=== PATIENT | female | born 1950 | race Caucasian/White ===

== ENCOUNTER → 2017-03-02 | Outpatient (CLI) | payer MEDICARE, OTHER ==
--- NOTE | 2017-03-04 14:01 | WOMENS IMAGING REPORT ---
EXAM DESCRIPTION: BONE DENSITY HIP/SPINE COMPLETED DATE/TIME: 03/02/2017 4:34 pm REASON FOR STUDY: AGE-RELATED OSTEOPROSIS; M81.0 M81.0 AGE-RELATED OSTEOPOROSIS W/O CURRENT PATHOLO GICAL FRAC Z12.31 ENCNTR SCREEN MAMMOGRAM FOR MALIGNANT NEOPLASM OF [place] COMPARISON: 2011, 2013 TECHNIQUE: Dual-Energy X-ray Absorptiometry (DEXA) of the AP Spine and Hip. LIMITATIONS: None. FINDINGS: LUMBAR SPINE: The bone mineral density (BMD) measured from L1-L4 in the AP projection correlates with a T-score of -2.3, which is osteopenic as defined by the World Health Organization. This is not statistically sig nificantly different from baseline assessment in 2011 HIP: The bone mineral density (BMD) measured in the left femoral neck at the hip correlates with a T-score of -2.3, which is osteopenic as defined by the World Health Organization. This represents a 10 to 1 1% decline in bone density compared to both prior studies IMPRESSION: 1. LUMBAR SPINE: Osteopenic 2. HIP: Osteopenic COMMENT: The World Health Organization defines low BMD as follows: T-score: Normal: Greater than -1.0 Osteopenia: Between -1.0 and -2.5 Osteoporosis: Less than -2.5 without fractures Established osteoporosis: Less than -2.5 with fractures In general, you may wish to consider: Diagnosis Treatment Follow-up DEXA Normal BMD Prevention 2-3 years Osteopenia Prevention/Therapy 1-2 years Osteoporosis Therapy Yearly TECHNICAL DOCUMENTATION: JOB ID: [id number] [email or web address]- All Rights Reserved
--- NOTE | 2017-03-09 20:00 | WOMENS IMAGING REPORT ---
EXAM DESCRIPTION: 3D SCREENING MAMMO BILAT COMPLETED DATE/TIME: 03/02/2017 4:34 pm REASON FOR STUDY: ROUTINE SCREENING; Z12.31 M81.0 AGE-RELATED OSTEOPOROSIS W/O CURRENT PATHOLOGICAL FRAC Z12.31 ENCNTR SCREEN MAMMOGRAM FOR MALIGNANT NEOPLASM OF [place] COMPARISON: Multiple since 2006 TECHNIQUE: Standard craniocaudal and mediolateral oblique views of each breast recorded using digita l acquisition and breast tomosynthesis. LIMITATIONS: None. FINDINGS: Findings present which are benign by mammographic criteria. No suspicious masses, calcifi cations or architectural distortion. Pertinent benign findings: Several right breast calcification, stable asymmetrically dense left retro areolar tissue Read with the assistance of CAD. .[facility] - R2 Cenova Version 1.3 .[facility] - R2 Cenova Version 1.3 .[facility] - R2 Cenova Version 2.4 .[facility] [place] - R2 Cenova Version 2.4 .[facility] - R2 Applied Researcher Version 9.2 Benign mammographic findings may include one or more of the following: Smooth masses, popcorn/rim/co arse calcifications, asymmetries, post-procedure changes, and lesions with long-standing stability. IMPRESSION: BENIGN MAMMOGRAPHIC FINDINGS. BIRADS 2 BREAST DENSITY: c. The breasts are heterogeneously dense, which may obscure small masses. BIRAD: 2 BENIGN FINDING(S) RECOMMENDATION: RECOMMENDATION: ROUTINE SCREENING Please continue yearly bilateral screening tomosynthesis in February 2018 COMMENT: The patient has been notified of the results by letter per MQSA requirements. Additional no tification policies are in place for contacting patient with suspicious or incomplete findings. Quality ID #[id number]: The [employer] recommends an annual screening mammogram for women aged 40 years or over. This facility utilizes a reminder system to ensure that all patients receive reminder letters, and/or direct phone calls for appointments. This includes reminders for routine scr eening mammograms, diagnostic mammograms, or other Breast Imaging Interventions when appropriate. Th is patient will be placed in the appropriate reminder system. The [employer] (ACR) has developed recommendations for screening MRI of the breast s in certain patient populations, to be used in conjunction with mammography. Breast MRI surveillanc e may be appropriate for women with more than 20% lifetime risk of developing breast cancer as deter mined by genetic testing, significant family history of the disease, or history of mantle radiation f or Hodgkins Disease. ACR Practice Guidelines 2008. DBT Technology DBT is a type of tomographic mammography. With conventional mammography, overlapping breast tissue ma y make lesions difficult to detect, even with good compression. DBT uses an x-ray tube that rotates a round the breast, taking images at different angles. These images are then combined to create thin sl ices of the breast that the radiologist can view as a 3D reconstruction. The Hologic unit can perform full-field digital mammograms (2D imaging); or DBT (3D imaging); or both, in a combination mode that quickly performs both the mammogram and the tomosynthesis scan while the breast is still compressed. RS 6045F: Fluoroscopic imaging is not utilized for breast tomosynthesis. TECHNICAL DOCUMENTATION: FINDING NUMBER: (1) ASSESSMENT: (1) JOB ID: [id number] [employer]- All Rights Reserved
== END ==
LOC: WI 13:59
PROVIDERS: ATTEND Internal Medicine
DX: Z12.31 Encounter for screening mammogram for malignant neoplasm of breast (principal); M81.0 Age-related osteoporosis without current pathological fracture
CPT/HCPCS: 77063; 77080; G0202; 77067

== ENCOUNTER → 2019-06-05 | Outpatient (CLI) | payer MEDICARE, OTHER ==
--- NOTE | 2019-06-05 12:19 | WOMENS IMAGING REPORT ---
EXAM DESCRIPTION: 3D SCREENING MAMMO BILAT COMPLETED DATE/TIME: 06/05/2019 9:43 am REASON FOR STUDY: Z12.31 ENCOUNTER FOR SCREENING MAMMOGRAM FOR MALIGNANT NEOPLASM OF BREAST Z12.31 ENCNTR SCREEN MAMMOGRAM FOR MALIGNANT NEOPLASM OF [place] M81.0 AGE-RELATED OSTEOPOROSIS W/O CURRENT PAT HOLOGICAL FRAC COMPARISON: Multiple since 2006 EXAM PARAMETERS: Views: Standard craniocaudal and mediolateral oblique views of each breast recorded using digital acquisition and breast tomosynthesis. Read with the assistance of CAD. .[facility] - [employer] Simulation Technician Version 9.2 LIMITATIONS: None. FINDINGS: No suspicious masses, suspicious calcifications or architectural distortion. No areas of c oncern. IMPRESSION: NEGATIVE MAMMOGRAM. BIRADS 1. BREAST DENSITY: b. There are scattered areas of fibroglandular density. BIRAD: ASSESSMENT: 1 NEGATIVE RECOMMENDATION: ROUTINE SCREENING Please continue yearly bilateral screening mammography/tomosynthesis in May 2020 COMMENT: The patient has been notified of the results by letter per [place] requirements. Additional no tification policies are in place for contacting patient with suspicious or incomplete findings. Quality ID #[id number]: The [employer] recommends an annual screening mammogram for women aged 40 years or over. This facility utilizes a reminder system to ensure that all patients receive reminder letters, and/or direct phone calls for appointments. This includes reminders for routine scr eening mammograms, diagnostic mammograms, or other Breast Imaging Interventions when appropriate. Th is patient will be placed in the appropriate reminder system. TECHNICAL DOCUMENTATION: FINDING NUMBER: (1) ASSESSMENT: (1) JOB ID: [id number] [employer]- All Rights Reserved Reading location - IP/workstation name: [email or web address]
--- NOTE | 2019-06-05 13:33 | WOMENS IMAGING REPORT ---
EXAM DESCRIPTION: BONE DENSITY HIP/SPINE COMPLETED DATE/TIME: 06/05/2019 9:43 am REASON FOR STUDY: M81.0 AGE-RELATED OSTEOPOROSIS WITHOUT CURRENT PATHOLOGICAL FRACTURE Z12.31 ENCNT R SCREEN MAMMOGRAM FOR MALIGNANT NEOPLASM OF [place] M81.0 AGE-RELATED OSTEOPOROSIS W/O CURRENT PATHOLOG ICAL FRAC COMPARISON: 2011, 2013, 2016 TECHNIQUE: Dual-Energy X-ray Absorptiometry (DEXA) of the AP Spine and Hip. LIMITATIONS: None. FINDINGS: LUMBAR SPINE: The bone mineral density (BMD) measured from L1-L4 in the AP projection correlates with a T-score of -2.1, which is osteopenic as defined by the World Health Organization. BMD Change vs Baseline: Not statistically significant HIP: The bone mineral density (BMD) measured in the left femoral neck at the hip correlates with a T-score of -1.8, which is osteopenic as defined by the World Health Organization. BMD Change vs Baseline: Not statistically significant 10 year Fracture Risk Assessment: Major Osteoporotic Fracture: 11% Hip Fracture: 1.6% IMPRESSION: 1. LUMBAR SPINE WHO CLASSIFICATION: Osteopenic 2. HIP WHO CLASSIFICATION: Osteopenic OVERALL ASSESSMENT: WHO CLASSIFICATION: Osteopenic COMMENT: The World Health Organization defines low BMD as follows: T-score: Normal: Greater than -1.0 Osteopenia: Between -1.0 and -2.5 Osteoporosis: Less than -2.5 without fractures Established osteoporosis: Less than -2.5 with fractures In general, you may wish to consider: Diagnosis Treatment Follow-up DEXA Normal BMD Prevention 2-3 years Osteopenia Prevention/Therapy 1-2 years Osteoporosis Therapy Yearly TECHNICAL DOCUMENTATION: JOB ID: [id number]- All Rights Reserved Reading location - IP/workstation name: [email or web address]
== END ==
LOC: WI 09:00
PROVIDERS: ATTEND Internal Medicine
DX: Z12.31 Encounter for screening mammogram for malignant neoplasm of breast (principal); M81.0 Age-related osteoporosis without current pathological fracture
CPT/HCPCS: 77063; 77067; 77080

== ENCOUNTER 2020-02-07 08:27 | Day surgery (SDC) | payer MEDICARE, OTHER ==
[2020-02-04 10:07] LABS: HEMATOCRIT 40.7 % (36.0-47.0); HEMOGLOBIN 13.7 g/dL (12.0-15.5); MEAN CORPUSCULAR HEMOGLOBIN 29.4 pg (27.0-33.4); MEAN CORPUSCULAR HGB CONC 33.7 g/dL (32.0-36.0); MEAN CORPUSCULAR VOLUME 87 fl (80-97); PLATELET COUNT 253 10^3/uL (150-450); RED BLOOD COUNT 4.66 10^6/uL (3.72-5.28); RED CELL DISTRIBUTION WIDTH 13.5 % (11.5-14.0); WHITE BLOOD COUNT 4.1 10^3/uL (4.0-10.5)
[2020-02-04 10:18] LABS: APPEARANCE,URINE CLOUDY; BILIRUBIN,URINE NEGATIVE (NEGATIVE); COLOR,URINE YELLOW; GLUCOSE, URINE NEGATIVE (NEGATIVE); KETONES,URINE NEGATIVE (NEGATIVE); LEUKOCYTE ESTERASE,URINE LARGE (NEGATIVE); NITRITE,URINE NEGATIVE (NEGATIVE); PROTEIN,URINE 100 mg/dL (NEGATIVE); URINE SPECIFIC GRAVITY 1.015; UROBILINOGEN,URINE NEGATIVE mg/dL (<2.0)
--- NOTE | 2020-02-04 10:20 | RADIOLOGY REPORT (SQ) ---
EXAM DESCRIPTION: CHEST PA/LATERAL IMAGES COMPLETED DATE/TIME: 02/04/2020 10:11 am REASON FOR STUDY: PREOP COMPARISON: None. EXAM PARAMETERS: NUMBER OF VIEWS: two views TECHNIQUE: Digital Frontal and Lateral radiographic views of the chest acquired. RADIATION DOSE: NA LIMITATIONS: none FINDINGS: LUNGS AND PLEURA: No opacities, masses or pneumothorax. No pleural effusion. MEDIASTINUM AND HILAR STRUCTURES: No masses or contour abnormalities. HEART AND VASCULAR STRUCTURES: Heart normal size. No evidence for failure. BONES: No acute findings. HARDWARE: None in the chest. OTHER: No other significant finding. IMPRESSION: NO SIGNIFICANT RADIOGRAPHIC FINDING IN THE CHEST. TECHNICAL DOCUMENTATION: JOB ID: [id number] 2010 [employer]- All Rights Reserved Reading location - IP/workstation name: [email or web address]
[2020-02-04 10:38] LABS: ALBUMIN 4.3 g/dL (3.5-5.0); ALKALINE PHOSPHATASE 134 U/L (38-126); ANION GAP 5 (5-19); ASPARTATE AMINO TRANSFERASE 22 U/L (14-36); BILIRUBIN,TOTAL 0.4 mg/dL (0.2-1.3); BLOOD UREA NITROGEN 19 mg/dL (7-20); CARBON DIOXIDE 31 mmol/L (22-30); CHLORIDE 105 mmol/L (98-107); GLUCOSE 105 mg/dL (75-110); POTASSIUM 4.9 mmol/L (3.6-5.0); TOTAL PROTEIN 7.4 g/dL (6.3-8.2)
--- NOTE | 2020-02-04 21:15 | EKG REPORT ---
SEVERITY:- NORMAL ECG - SINUS RHYTHM : Confirmed by: Trey Mccurdy MD 04-Feb-2020 21:14:12
[~2020-02-07 08:27] MED LIST: CEFAZOLIN 2 GM/D5W RTU 2 GM/50 ML RTUPB IV ONE; CEFAZOLIN 2 GM/D5W RTU 2 GM/50 ML RTUPB IV PRN; CEFAZOLIN SODIUM 2 GM in DEXTROSE 5%-WATER 100 ML IV PRN; LACTATED RINGERS 1000 ML IV PRN; LIDOCAINE 0.5% INJ-PF (5 MG/ML) 50 ML SDV SUBCUT PRN
[2020-02-07] MEDS ORDERED: SUCCINYLCHOLINE CHLORIDE INJ 200 MG/10 ML VIAL ONE (08:37)
[2020-02-07] MEDS ORDERED: VECURONIUM BROMIDE INJ 10 MG VIAL IV ONE (08:37)
[2020-02-07] MEDS ORDERED: ACETAMINOPHEN 325 MG TABLET ONE (09:08)
[2020-02-07] MEDS ORDERED: EPHEDRINE SULFATE INJ 50 MG/1 ML AMPULE ONE (09:48)
[2020-02-07] MEDS ORDERED: MIDAZOLAM 2 MG/2 ML INJ ONE (09:48)
[2020-02-07] MEDS ORDERED: KETOROLAC TROMETHAMINE 60 MG/2 ML SDV ONE (09:48)
[2020-02-07] MEDS ORDERED: ONDANSETRON HCL INJ/PF 4 MG/2 ML SDV ONE (09:48)
[2020-02-07] MEDS ORDERED: FENTANYL CITRATE INJ/PF 100 MCG/2 ML AMPUL ONE (09:48)
[2020-02-07] MEDS ORDERED: PROPOFOL INJ 200 MG/20 ML VIAL IV ONE (09:48)
[2020-02-07] MEDS ORDERED: ACETAMINOPHEN 325 MG TABLET PO ONE (10:00)
[2020-02-07] MEDS ORDERED: LIDOCAINE 0.5%/EPINEPHRINE INJ 50 ML VIAL ONE (10:50)
[2020-02-07] MEDS ORDERED: HYDROMORPHONE HCL INJ/PF 2 MG/ML AMPULE ONE (11:01)
[2020-02-07] MEDS ORDERED: MORPHINE SULFATE 10 MG/ML INJ IV PRN (11:15)
[2020-02-07] MEDS ORDERED: FENTANYL CITRATE INJ/PF 100 MCG/2 ML AMPUL IV PRN ×3 (11:15)
[2020-02-07] MEDS ORDERED: MEPERIDINE HCL/PF INJ 25 MG/1 ML DISP.SYRIN IV PRN (11:15)
[2020-02-07] MEDS ORDERED: ONDANSETRON HCL INJ/PF 4 MG/2 ML SDV IV PRN (11:15)
[2020-02-07] MEDS ORDERED: PROMETHAZINE HCL INJ 25 MG/1 ML VIAL IV PRN ×3 (11:15→12:55)
[2020-02-07] MEDS ORDERED: DIPHENHYDRAMINE HCL 50 MG/ML VIAL IV PRN (11:15)
[2020-02-07] MEDS ORDERED: OXYCODONE-ACETAMINOPHEN 5-325 MG TABLET PO PRN ×4 (11:15→12:55)
[2020-02-07] MEDS ORDERED: SIMETHICONE 80 MG TAB.CHEW PO PRN (12:55)
[2020-02-07] MEDS ORDERED: HYDROMORPHONE HCL INJ/PF 2 MG/ML AMPULE IV PRN (12:55)
[2020-02-07] MEDS ORDERED: OXYTOCIN/0.9 % SODIUM CHLORIDE 30 UNIT/500 ML RTUINJ IV PRN (12:55)
[2020-02-07] MEDS ORDERED: ACETAMINOPHEN 1,000 MG/100 ML RTUPB IV PRN (12:55)
[2020-02-07 15:12] LABS: ABSOLUTE LYMPHOCYTES (AUTO) 0.6 10^3/uL (0.5-4.7); ABSOLUTE MONOCYTES (AUTO) 0.5 10^3/uL (0.1-1.4); ABSOLUTE NEUT (AUTO) 7.3 10^3/uL (1.7-8.2); BASOPHILS % (AUTO) 0.2 % (0-2); EOSINOPHILS % (AUTO) 0.2 % (0-6); HEMATOCRIT 35.7 % (36.0-47.0); HEMOGLOBIN 12.1 g/dL (12.0-15.5); LYMPHOCYTES % (AUTO) 6.9 % (13-45); MEAN CORPUSCULAR HEMOGLOBIN 29.3 pg (27.0-33.4); MEAN CORPUSCULAR HGB CONC 33.7 g/dL (32.0-36.0); MEAN CORPUSCULAR VOLUME 87 fl (80-97); MONOCYTES % (AUTO) 5.4 % (3-13); PLATELET COUNT 213 10^3/uL (150-450); RED BLOOD COUNT 4.11 10^6/uL (3.72-5.28); RED CELL DISTRIBUTION WIDTH 13.6 % (11.5-14.0); SEGMENTED NEUTROPHILS % (AUTO) 87.3 % (42-78); TOTAL CELLS COUNTED % (AUTO) 100 %; WHITE BLOOD COUNT 8.4 10^3/uL (4.0-10.5)
[2020-02-07 15:32] LABS: BLOOD UREA NITROGEN 17 mg/dL (7-20); CALCIUM 8.9 mg/dL (8.4-10.2); CHLORIDE 107 mmol/L (98-107); GLUCOSE 140 mg/dL (75-110); POTASSIUM 3.8 mmol/L (3.6-5.0)
[2020-02-07 15:38] LABS: ANION GAP 5 (5-19); CARBON DIOXIDE 27 mmol/L (22-30)
--- NOTE | 2020-02-07 17:15 | Operative Report ---
Operative Report DATE OF SURGERY: 02/07/20 PREOPERATIVE DIAGNOSIS: Uterine prolapse with cystocele and gaping perineum. S he also desires removal of the ovaries and fallopian tubes. POSTOPERATIVE DIAGNOSIS: Same OPERATION: Laparoscopic-assisted vaginal hysterectomy with bilateral salpingo- oophorectomy, anterior repair and perineorrhaphy SURGEON: JASON LARA 1ST LOG HANDLING EQUIPMENT OPERATOR: VINNY BLACKWELL ANESTHESIA: GA TISSUE REMOVED OR ALTERED: Uterus tubes ovaries cervix COMPLICATIONS: None ESTIMATED BLOOD LOSS: 125 cc INTRAOPERATIVE FINDINGS: Fibroid present on the uterus normal appearing menopausal ovaries and fallopian tubes. Cystocele noted and gaping introitus. PROCEDURE: The patient was taken the OR placed in supine position. Anesthesia was induced. She is placed in the dorsolithotomy position using Dixon stirrups. Her abdomen perineum and vagina were prepared and draped in a sterile fashion. A Calero catheter was placed for drainage of the bladder. A weighted speculum was placed in the vagina and the cervix was grasped with a tenaculum. Sound was to 7 cm. The cervix was gently dilated allowing a V care uterine manipulator to be placed. Incision was made the umbilicus. The fascia was grasped with Allis clamps and elevated and incised with curved Hammer scissors. A blunt port was placed. Laparoscopy confirmed appropriate placement. The abdomen was then insufflated with CO2 gas. View of the pelvis was good. A left lateral port was placed under laparoscopic visualization and a right lateral port also placed under laparoscopic visualization as well as a suprapubic port. These were all 5 mm ports. First the left ovary was elevated out of the pelvis and adhesions were taken down freeing the ovary. The ovary was moved away from the pelvic sidewall and the infundibulopelvic pedicle was cauterized and cut with the LigaSure device. The ureter was well away from the site. Likewise the round ligament was cauterized and cut with the LigaSure device. The same procedure was carried out on the right ovary and round ligament. Staying directly next to the uterus the broad ligament was cauterized and cut with the LigaSure device bilaterally. The anterior leaf of the broad ligament was incised and the bladder was taken off the cervix using sharp and blunt dissection. The uterine arteries were cauterized and cut with the LigaSure device bilaterally. The cardinal ligaments also were cauterized directly next to the cervix and cut using the LigaSure device. Upon reaching the vaginal cuff the V care ring could be palpated. The circumferential incision was then made using a monopolar hook excising the cervix free from the vaginal cuff and the uterus tubes and ovaries were removed through the vagina. The surgical pedicles were inspected and found to be hemostatic. The instruments were removed from the abdomen but the ports were left in place at this point. Next the vaginal portion of the procedure was done. Angle sutures were placed bilaterally incorporating anterior vaginal mucosa and posterior vaginal mucosa and ligated. This helped with bleeding from the vaginal cuff. The midline of the anterior vaginal cuff was grasped with Allis clamps. The vaginal mucosa was then infiltrated with a dilute solution of lidocaine. An incision over the vaginal mucosa was then made overlying the cystocele. The edges of the vaginal mucosa were grasped with Allis clamps and the vaginal mucosa was dissected off the bladder using sharp and blunt dissection. Next interrupted sutures of 2-0 Vicryl were used to bring the lateral vaginal tissue medially over the cystocele. This this was done with 5 interrupted sutures and afterwards no cystocele was present. The edges of the vaginal incision were trimmed and the vaginal mucosa was closed with interrupted sutures of 2-0 Vicryl suture. At this point the cystocele was no longer present. The remainder of the vaginal cuff was closed with interrupted sutures of 2-0 Vicryl incorporating anterior vaginal mucosa to posterior vaginal mucosa. The vagina was then irrigated and hemostasis was good at this point. Next a triangular portion of perineum was removed with the scalpel. The peritoneum was then closed with interrupted sutures of 2-0 Vicryl greatly reducing the caliber of the vaginal opening. I returned to the laparoscopy portion of the case and reinspected the surgical pedicles. Good hemostasis was noted. The pelvis was irrigated and suctioned free of fluid. At this point the ports were removed under laparoscopic visualization the umbilical port and scope were removed at the same time. The fascia at the umbilicus was closed with a 2-0 Vicryl stitch and skin closed with a 4-0 undyed Vicryl stitch. Patient was placed back in supine position extubated in the OR and taken recovery room stable condition.
[2020-02-07] MEDS ORDERED: ACETAMINOPHEN 325 MG TABLET PO PRN (18:00)
[2020-02-07] MEDS: DOCUSATE SODIUM 100 MG CAPSULE PO SCH (18:31)
[2020-02-07] MEDS: KETOROLAC TROMETHAMINE INJ/PF 30 MG/1 ML SDV IV SCH (18:31)
[2020-02-07] MEDS: RINGERS SOLUTION,LACTATED 1,000 ML IV PRN (20:53)
[2020-02-07] MEDS ORDERED: (PENDING PHARMACY ID) (Citalopram Hydrobromide [Citalopram Hbr] 40 MG) PO SCH (22:00)
[2020-02-07] MEDS ORDERED: (PENDING PHARMACY ID) (Rosuvastatin Calcium [Rosuvastatin Calcium] 10 MG) PO SCH (22:00)
[2020-02-07] MEDS ORDERED: CITALOPRAM HYDROBROMIDE 20 MG TABLET PO SCH (22:30)
[2020-02-07] MEDS ORDERED: TRAZODONE HCL 50 MG TABLET PO SCH (22:30)
[2020-02-07] MEDS ORDERED: ATORVASTATIN CALCIUM 20 MG TABLET PO SCH ×2 (22:30)
[2020-02-08] MEDS: KETOROLAC TROMETHAMINE INJ/PF 30 MG/1 ML SDV IV SCH (01:27)
[2020-02-08] MEDS: RINGERS SOLUTION,LACTATED 1,000 ML IV PRN (04:48)
[2020-02-08 08:00] VITALS: BP 118/60
[2020-02-08 08:27] LABS: HEMOGLOBIN 10.7 g/dL (12.0-15.5); MEAN CORPUSCULAR HGB CONC 33.5 g/dL (32.0-36.0); MEAN CORPUSCULAR VOLUME 87 fl (80-97); PLATELET COUNT 206 10^3/uL (150-450); RED BLOOD COUNT 3.69 10^6/uL (3.72-5.28); RED CELL DISTRIBUTION WIDTH 13.7 % (11.5-14.0); WHITE BLOOD COUNT 5.3 10^3/uL (4.0-10.5)
[2020-02-08] MEDS: DOCUSATE SODIUM 100 MG CAPSULE PO SCH (09:13)
--- NOTE | 2020-02-08 09:44 | PDOC DISCHARGE SUMMARY ---
Impression - Admit/DC Date/PCP Admission Date/Primary Care Provider: KENDRA TOURE MD Discharge Date: 02/08/20 - Discharge Diagnosis (1) Pelvic prolapse Is this a current diagnosis for this admission?: Yes (2) Pelvic organ prolapse quantification stage 3 cystocele Is this a current diagnosis for this admission?: Yes - Assessment Summary: She was admitted and underwent a LAVH with bso, anterior repair and perineorraphy. Please see the operative report. The night of surgery she did well. The next morning the garcia is out and she reports no pain. She would like to go home this am. Continue home meds and planned followup next week. Limit activity and no driving. - Additional Information Resuscitation Status: Full Code Discharge Diet: Regular Discharge Activity: Balance Activity w/Rest, Pelvic Rest Referrals: KENDRA TOURE MD [Primary Care Provider] - Prescriptions: Oxycodone HCl/Acetaminophen [Percocet 5-325 mg Tablet] 1 tab PO Q4HP PRN #30 tablet PRN Reason: Ibuprofen [Motrin 800 mg Tablet] 800 mg PO Q8H #30 tablet Home Medications: Citalopram Hydrobromide [Citalopram HBr] 40 mg PO QHS 02/04/20 Rosuvastatin Calcium 10 mg PO QHS 02/04/20 Trazodone HCl 100 mg PO QHS 02/07/20 Ibuprofen [Motrin 800 mg Tablet] 800 mg PO Q8H #30 tablet 02/08/20 Oxycodone HCl/Acetaminophen [Percocet 5-325 mg Tablet] 1 tab PO Q4HP PRN #30 tablet 02/08/20 History of Present Illiness History of Present Illness: CARLEE SAEZ is a 69 year old female Physical Exam - Physical Exam Vital Signs: Temp Pulse Resp BP Pulse Ox 97.8 F 67 18 118/60 100 02/08/20 07:13 02/08/20 07:13 02/08/20 07:13 02/08/20 07:13 02/08/20 07:13 Intake & Output 02/07/20 02/08/20 02/09/20 06:59 06:59 06:59 Intake Total 3720 Output Total 1250 Balance 2470 Weight 76.067 kg Results Laboratory Results: WBC 8.4 10^3/uL (4.0-10.5) 02/07/20 15:07 RBC 4.11 10^6/uL (3.72-5.28) 02/07/20 15:07 Hgb 12.1 g/dL (12.0-15.5) 02/07/20 15:07 Hct 35.7 % (36.0-47.0) L 02/07/20 15:07 MCV 87 fl (80-97) 02/07/20 15:07 MCH 29.3 pg (27.0-33.4) 02/07/20 15:07 MCHC 33.7 g/dL (32.0-36.0) 02/07/20 15:07 RDW 13.6 % (11.5-14.0) 02/07/20 15:07 Plt Count 213 10^3/uL (150-450) 02/07/20 15:07 Lymph % (Auto) 6.9 % (13-45) L 02/07/20 15:07 Scurry % (Auto) 5.4 % (3-13) 02/07/20 15:07 Eos % (Auto) 0.2 % (0-6) 02/07/20 15:07 Baso % (Auto) 0.2 % (0-2) 02/07/20 15:07 Absolute Neuts (auto) 7.3 10^3/uL (1.7-8.2) 02/07/20 15:07 Absolute Lymphs (auto) 0.6 10^3/uL (0.5-4.7) 02/07/20 15:07 Absolute Monos (auto) 0.5 10^3/uL (0.1-1.4) 02/07/20 15:07 Absolute Eos (auto) 0.0 10^3/uL (0.0-0.6) 02/07/20 15:07 Absolute Basos (auto) 0.0 10^3/uL (0.0-0.2) 02/07/20 15:07 Seg Neutrophils % 87.3 % (42-78) H 02/07/20 15:07 Sodium 138.9 mmol/L (137-145) 02/07/20 15:07 Potassium 3.8 mmol/L (3.6-5.0) 02/07/20 15:07 Chloride 107 mmol/L (98-107) 02/07/20 15:07 Carbon Dioxide 27 mmol/L (22-30) 02/07/20 15:07 Anion Gap 5 (5-19) 02/07/20 15:07 BUN 17 mg/dL (7-20) 02/07/20 15:07 Creatinine 0.94 mg/dL (0.52-1.25) 02/07/20 15:07 Est GFR ( Amer) > 60 (>60) 02/07/20 15:07 Est GFR (MDRD) Non-Af 59 (>60) L 02/07/20 15:07 Glucose 140 mg/dL (75-110) H 02/07/20 15:07 Calcium 8.9 mg/dL (8.4-10.2) 02/07/20 15:07 Total Bilirubin 0.4 mg/dL (0.2-1.3) 02/04/20 09:25 Direct Bilirubin 0.0 mg/dL (0.0-0.4) 02/04/20 09:25 Neonat Total Bilirubin Not Reportable 02/04/20 09:25 Neonat Direct Bilirubin Not Reportable 02/04/20 09:25 Neonat Indirect Bili Not Reportable 02/04/20 09:25 AST 22 U/L (14-36) 02/04/20 09:25 ALT 13 U/L (<35) 02/04/20 09:25 Alkaline Phosphatase 134 U/L (38-126) H 02/04/20 09:25 Total Protein 7.4 g/dL (6.3-8.2) 02/04/20 09:25 Albumin 4.3 g/dL (3.5-5.0) 02/04/20 09:25 Urine Color YELLOW 02/04/20 09:15 Urine Appearance CLOUDY 02/04/20 09:15 Urine pH 6.0 (5.0-9.0) 02/04/20 09:15 Ur Specific [place] 1.015 02/04/20 09:15 Urine Protein 100 mg/dL (NEGATIVE) H 02/04/20 09:15 Urine Glucose (UA) NEGATIVE mg/dL (NEGATIVE) 02/04/20 09:15 Urine Ketones NEGATIVE mg/dL (NEGATIVE) 02/04/20 09:15 Urine Blood SMALL (NEGATIVE) H 02/04/20 09:15 Urine Nitrite NEGATIVE (NEGATIVE) 02/04/20 09:15 Urine Bilirubin NEGATIVE (NEGATIVE) 02/04/20 09:15 Urine Urobilinogen NEGATIVE mg/dL (<2.0) 02/04/20 09:15 Ur Leukocyte Esterase LARGE (NEGATIVE) H 02/04/20 09:15 Urine WBC (Auto) >182 /HPF 02/04/20 09:15 Urine RBC (Auto) 42 /HPF 02/04/20 09:15 Urine Bacteria (Auto) TRACE /HPF 02/04/20 09:15 Urine WBC Clumps MANY /HPF 02/04/20 09:15 Squamous Epi Cells Auto 9 /HPF 02/04/20 09:15 Urine Mucus (Auto) RARE /LPF 02/04/20 09:15 Urine Ascorbic Acid NEGATIVE (NEGATIVE) 02/04/20 09:15 COVID-19 Source NASOPHARYNGEAL 02/04/20 09:20 COVID-19 (GISELL) NOT DETECTED 02/04/20 09:20 Blood Type A POSITIVE 02/04/20 09:25 Antibody Screen NEGATIVE 02/04/20 09:25 Impressions: Chest X-Ray 02/04/20 00:00 IMPRESSION: NO SIGNIFICANT RADIOGRAPHIC FINDING IN THE CHEST. Stroke Is this a Stroke Patient?: No Acute Heart Failure - Is this a Heart Failure Patient?: No
[2020-02-08] MEDS ORDERED: IBUPROFEN 800 MG TABLET PO SCH (12:00)
== END 2020-02-08 09:45 | disposition home or self-care (01) ==
LOC: OROUT 08:27 → 2S 14:15 → OROUT 02-08 09:45
PROVIDERS: ATTEND Obstetrics & Gynecology
DX: N81.3 Complete uterovaginal prolapse (principal); N72 Inflammatory disease of cervix uteri; N84.0 Polyp of corpus uteri; D25.9 Leiomyoma of uterus, unspecified; N94.89 Other specified conditions associated with female genital organs and menstrual cycle; N83.8 Other noninflammatory disorders of ovary, fallopian tube and broad ligament; N89.8 Other specified noninflammatory disorders of vagina; E78.5 Hyperlipidemia, unspecified; Z79.899 Other long term (current) drug therapy; Z03.818 Encounter for observation for suspected exposure to other biological agents ruled out
CPT/HCPCS: 93005; 86900; 86901; 36415 ×2; 86850; 85025; 85027 ×2; 80048; 80053; 81001; 88307 ×2; 71046; 94799; 93010; 00840; 58552; 57240; C1758; U0003; A9270 ×6; J2250; J3490 ×3; J1885 ×2; J3010; J1170; J0330; J2405; J7120 ×2; J2704; J0690; C9803; 840; 87635; J7060

== ENCOUNTER → 2020-06-06 | Outpatient (CLI) | payer MEDICARE, OTHER ==
--- NOTE | 2020-06-06 11:30 | WOMENS IMAGING REPORT ---
EXAM DESCRIPTION: 3D SCREENING MAMMO BILAT IMAGES COMPLETED DATE/TIME: 06/06/2020 9:24 am REASON FOR STUDY: Z12.31 ENCNTR SCREEN MAMMOGRAM FOR MALIGNANT NEOPLASM OF BREAST Z12.31 ENCNTR SCR EEN MAMMOGRAM FOR MALIGNANT NEOPLASM OF [place] COMPARISON: 2017 and subsequent. EXAM PARAMETERS: Views: Standard craniocaudal and mediolateral oblique views of each breast recorded using digital acquisition and breast tomosynthesis. Read with the assistance of CAD. .[facility] - [employer] Version 9.2 LIMITATIONS: None. FINDINGS: No suspicious masses, suspicious calcifications or architectural distortion. No areas of c oncern. IMPRESSION: NEGATIVE MAMMOGRAM. BIRADS 1. BREAST DENSITY: c. The breasts are heterogeneously dense, which may obscure small masses. BIRAD: ASSESSMENT: 1 NEGATIVE RECOMMENDATION: ROUTINE SCREENING COMMENT: The patient has been notified of the results by letter per MQSA requirements. Additional no tification policies are in place for contacting patient with suspicious or incomplete findings. Quality ID #[id number]: The [employer] recommends an annual screening mammogram for women aged 40 years or over. This facility utilizes a reminder system to ensure that all patients receive reminder letters, and/or direct phone calls for appointments. This includes reminders for routine scr eening mammograms, diagnostic mammograms, or other Breast Imaging Interventions when appropriate. Th is patient will be placed in the appropriate reminder system. TECHNICAL DOCUMENTATION: FINDING NUMBER: (1) ASSESSMENT: (1) JOB ID: [id number] 2010 [employer]- All Rights Reserved Reading location - IP/workstation name: [email or web address]
== END ==
LOC: WI 08:55
PROVIDERS: ATTEND Physician Assistant
DX: Z12.31 Encounter for screening mammogram for malignant neoplasm of breast (principal)
CPT/HCPCS: 77063; 77067